=== PATIENT | female | born 1985 | race Caucasian/White ===

== ENCOUNTER 2016-12-15 07:45 | Emergency (ER) | payer OTHER ==
--- NOTE | 2016-12-15 09:06 | ED NURSING NOTES ---
Clinical Report - Nurses [facility] [place] [address] 12/15/2016 7:45 Patient: SARATH MAK TRIAGE Triage time 07:55 Dec 15 2016. Acuity: LEVEL 3. 08:02 12/15/16. --08:02 Brett Bearden R.N. 07:54 12/15/16. BP: 122/66. HR: 117. RR: 20. O2 saturation: 100% on room air. Temp: 97.8 F. Pain level now: 03/22. Additional comments: pain 10 to lle. --08:02 Brett Bearden R.N. Chief Complaint: LEFT LOWER EXTREMITY PAIN, SWELLING and REDNESS. 07:54. --09:44 Brett Bearden R.N. Weight: 95.2 kg stated. Height/Length: 65 inches Per Patient. BMI: 35. --08:05 Brett Bearden R.N. Medications None. --09:43 Brett Bearden R.N. Allergies Sulfa Antibiotics. --08:01 Brett Bearden R.N. History Arrived by private vehicle. Historian: patient. Accompanied by friend. No injury occurred. This occurred yesterday. She has had redness. She has had trouble walking (yesterday). PAST MEDICAL HX: No history of diabetes mellitus or heart disease. Currently . ( Patient reports she is 24 weeks along. 3. Patient reports no flu shot this season.). SURGERY HX: has been performed once. SOCIAL HX: Current every day light tobacco smoker- less than 1/2 a pack per day. No alcohol use or drug use. No infectious disease exposure. FALL RISK ASSESSMENT: Fall risk assessment completed. No fall risk identified. NUTRITIONAL RISK ASSESSMENT: The nutritional risk assessment revealed no deficiencies. LEARNING NEEDS ASSESSMENT: The learning needs assessment revealed no barriers. SKIN INTEGRITY ASSESSMENT: Blister noted on the left calf; present on arrival. Wound and skin consultation obtained. --08:02 Cook, Brett, R.N. Interventions ID band on patient. --08:02 Brett Bearden R.N. PHYSICAL ASSESSMENT 08:04 12/15/16. Ambulatory to room. GENERAL / NEURO / PSYCH: Oriented X 4. Alert. Appears in no acute distress. EXTREMITIES: Purulent drainage on the extremities. Extremity pulses are within normal limits. Extremities exhibit normal ROM. No lower extremity edema. Left leg: tenderness, swelling and erythema of the lower leg. Limited weight bearing secondary to pain (LLE, lateral calf abscess). SKIN: Skin is warm and dry. Skin breakdown noted. --08:04 Brett Bearden R.N. SKIN: ( Edge of erythema outlined with surgical pen.). --08:11 Brett Bearden R.N. NURSING PROGRESS NOTES 08:05 12/15/16. Patient gowned. Reassurance given. Two patient identifiers checked. Call light placed in reach. Side rails up x 2. Bed placed in lowest position. Brakes of bed on. ( RN listened to heart tones at 146 bpm.). --08:05 Brett Bearden R.N. 09:35 12/15/2016 Cleocin (Clindamycin HCl) PO Capsules 150 mg given. Allergies verified and confirmed 5 rights. --09:35 Brett Bearden R.N. 09:37 12/15/16. BP: 121/68. HR: 106. RR: 16. O2 saturation: 98% on room air. Temp: 97.8 F. --09:41 Brett Bearden R.N. Applied clean dressing consisting of telfa pad, following the application of antibiotic ointment. Secured with tape and tube gauze. --09:45 Lorena Weiss R.N. DISPOSITION / DISCHARGE Departure time: 09:42 Dec 15 2016. Condition at departure: improved. The goals identified in the patient's plan of care were met. No learning barriers present. Discharge instructions provided and reviewed with the patient. Reviewed medication(s) course information. Prescription(s) given to the patient. Patient verbalized understanding. Written instructions provided in Sammarinese. The patient was discharged by the physician. She was discharged home. She left the Emergency Department ambulatory and via private vehicle. Patient driving. --09:42 Brett Bearden R.N. 09:37 12/15/16. BP: 121/68. HR: 106. RR: 16. O2 saturation: 98% on room air. Temp: 97.8 F. --09:43 Brett Bearden R.N. Locked/Released at 12/15/2016 9:46 by Lorena Weiss R.N.
--- NOTE | 2016-12-15 09:06 | ED ORDER SUMMARY ---
..... Patient: SARATH MAK OrderSheet [facility] VisitID: [id number] [address] [place] [address] 31y, F Registration Date/Time: 12/15/2016 ORDER SHEET Weight: 95.2 kg (stated) Allergies: Sulfa Antibiotics GENERAL ORDERS: US Venous Right Urgent (08:11 12/15/2016 Telma BONILLA) (8:14 Joyce R.N.) (Cancelled: Other8:15 Telma BONILLA) MEDICATION ORDERS: Cleocin PO 300 mg (NOW) (09:05 12/15/2016 Telma BONILLA) (9:35 Joyce R.N.) IV FLUIDS: ORDER SHEET NOTES: [Electronically signed by Lorena Weiss R.N. (09:46 12/15/2016)] [Electronically signed by Brigid Gloria MD (21:13 12/20/2016)] [Electronically locked/signed by Lorena Weiss R.N. (09:46 12/15/2016)]
--- NOTE | 2016-12-15 09:06 | ED ORDER SUMMARY ---
..... Patient: SARATH MAK OrderSheet [facility] VisitID: [id number] [address] [place] [address] 31y, F Registration Date/Time: 12/15/2016 ORDER SHEET Weight: 95.2 kg (stated) Allergies: Sulfa Antibiotics GENERAL ORDERS: US Venous Right Urgent (08:11 12/15/2016 Telma BONILLA) (8:14 Joyce R.N.) (Cancelled: Other8:15 Telma BONILLA) MEDICATION ORDERS: Cleocin PO 300 mg (NOW) (09:05 12/15/2016 Telma BONILLA) (9:35 Joyce R.N.) IV FLUIDS: ORDER SHEET NOTES: [Electronically signed by Lorena Weiss R.N. (09:46 12/15/2016)] [Electronically signed by Brigdi Gloria MD (21:13 12/20/2016)] [Electronically locked/signed by Lorena Weiss R.N. (09:46 12/15/2016)]
--- NOTE | 2016-12-15 09:06 | ED CLINICAL REPORT ---
Clinical Report - Physicians/Mid Levels [facility] [address] [place] [address] 12/15/2016 7:45 Patient: SARATH MAK Time Seen: 08:10. Arrived- By private vehicle. Historian- patient. HISTORY OF PRESENT ILLNESS Chief Complaint: LOWER EXTREMITY PAIN and SWELLING. Not worsened by anything and relieved by anything. This started about 3 days ago and is still present. Severity is described as being moderate. The quality is noted to be "pain" and similar to prior episodes. The patient has had redness and swelling. No difficulty walking. No bladder dysfunction, bowel dysfunction, sensory loss or motor loss. ( Pt states the area started as what seemed to be a spider bite, but progressed to a larger erythematous area with a blister.). Patient denies an injury. Similar symptoms previously: None. Recent medical care: The patient was seen recently at another facility. ( Pt is receiving care for . She denies any problems with the .). REVIEW OF SYSTEMS No cough, chest pain, difficulty breathing, fever or enlarged lymph nodes. No neck pain, back pain, headache, blurred vision or sore throat. No abdominal pain, vomiting, diarrhea, black stools or difficulty with urination. No bloody stools. The patient has had skin rash. All systems otherwise negative, except as recorded above. PAST HISTORY Problems: Sinusitis. Immunizations. . Ectopic . Dental Pain. LNMP - Last Normal Menstrual Period. Additional Surgeries: . Medications: None. Allergies: Sulfa Antibiotics. SOCIAL HISTORY Smoker- current status unknown. No alcohol use or drug use. ADDITIONAL NOTES The nursing notes have been reviewed. PHYSICAL EXAM Vital Signs: 12/15/2016 07:54 BP: 122/66. HR: 117. RR: 20. O2 saturation: 100%. Temp: 97.8 F. Pain level now: 5/10. Have been reviewed. Appearance: Alert. Oriented X3. No acute distress. Eyes: Pupils equal, round and reactive to light. Eyes normal inspection. ENT: Nose normal. Neck: Normal inspection. CVS: Normal heart rate and rhythm. Heart sounds normal. Respiratory: No respiratory distress. Breath sounds normal. Abdomen: Soft and nontender. Gravid uterus. Back: Normal inspection. Skin: Skin intact. Skin warm and dry. Normal skin color. Normal skin turgor. Extremities: Left leg: moderate erythema and tenderness and mild swelling located in the posterior and lateral aspect of mid leg. Neurovascular intact distally. (Pt has a 2 cm bulla in the center of the erythematous area (5 cm total diameter) with purulent-appearing material within. No deeper induration noted.). No laceration, abrasion, ecchymosis, puncture wound or foreign body. No deformity. No limitation of weight bearing. Extremities otherwise negative. Neuro: Oriented X 3. No motor deficit. No sensory deficit. LABS, X-RAYS, AND EKG Pulse Oximetry: 12/15/2016 07:54 O2 saturation: 100%. (FIO2 - room air). Interpretation: normal. PROGRESS AND PROCEDURES Debridement: Bite wound. Location: left leg. Discussed the procedure's benefits and risks. Prep done with Betadine. Debridement of skin (full thickness) (less than or equal to 20 square centimeters) performed (bulla only). Removed blisters. Sharp dissection performed using scissors. Wound irrigated with normal saline. Antibiotic dressing applied. Tetanus immunization up-to-date. Course of Care: I did debride the skin from the bulla, as above, and pt was started on abx. FHT's were appropriate. I did not find evidence of an abscess. Patient counseled in person regarding the patient's stable condition, diagnosis and need for follow-up. Concerns were addressed. Old medical records reviewed. Disposition: Discharged. Condition: stable and improved. CLINICAL IMPRESSION Cellulitis of the left lower leg. No foreign body present. (Bulla with debridement.). INSTRUCTIONS Apply ice for 20 minutes three times a day as needed and until better. Don't apply ice directly to skin and don't use while asleep. Elevate affected areas above chest level as needed and until better. Warnings: GENERAL WARNINGS: Return or contact your physician immediately if your condition worsens or changes unexpectedly, if not improving as expected, or if other problems arise. Prescription Medications: Clindamycin 300 mg: take 1 capsule orally every 6 hours for 7 days. No refill. Follow-up: Follow up with your doctor in four days if not better. Understanding of the discharge instructions verbalized by patient. (Electronically signed by Brigid Glorai MD 12/20/2016 21:13)
--- NOTE | 2016-12-20 21:13 | ED MAR SUMMARY ---
..... Medication Administration Record [facility] [address] [place] [address] Patient: SARATH MAK Visit ID: [id number] 31y, F Weight: 95.2 kg Height/Length: 65 in BMI: 35 ALLERGIES: Sulfa Antibiotics Given 09:35 12/15/2016 Brett Bearden R.N. Medication Administered: CLEOCIN [PO] (CLINDAMYCIN HCL), Dose: 150 mg Capsules PO. Medication Ordered: Cleocin PO 300 mg (NOW).
--- NOTE | 2016-12-20 21:13 | ED MED RECONCILIATION SUMMARY ---
Patient: SARATH MAK Medication Reconciliation Report [facility] VisitID: [id number] [address] [place] [address] 31y, F Registration Date/Time: 12/15/2016 Weight: 95.2 kg Height/Length: 65 in. BMI: 35.0 ALLERGIES: Sulfa Antibiotics The patient's Home Medications are listed below: NONE. The source(s) of the original Home Medication information: Not obtained. The following Medications were given to the patient in the Emergency Department: Cleocin [PO] PO 150 mg, administered: 12/15/2016 9:35:00 AM The following Medications were prescribed to the patient: Clindamycin 300 mg: take 1 capsule orally every 6 hours for 7 days. No refill. -- Brigid Gloria MD
--- NOTE | 2016-12-20 21:13 | ED MAR SUMMARY ---
..... Medication Administration Record [facility] [address] [place] [address] Patient: SARATH MAK Visit ID: [id number] 31y, F Weight: 95.2 kg Height/Length: 65 in BMI: 35 ALLERGIES: Sulfa Antibiotics Given 09:35 12/15/2016 Brett Bearden R.N. Medication Administered: CLEOCIN [PO] (CLINDAMYCIN HCL), Dose: 150 mg Capsules PO. Medication Ordered: Cleocin PO 300 mg (NOW).
--- NOTE | 2016-12-20 21:13 | ED DISCHARGE INSTRUCTIONS ---
Patient: SARATH MAK General Instructions [facility] VisitID: [id number] [place] [address] 31y, F Registration Date/Time: 12/15/2016 Cellulitis of the left lower leg. No foreign body present. (Bulla with debridement.). INSTRUCTIONS Apply ice for 20 minutes three times a day as needed and until better. Don't apply ice directly to skin and don't use while asleep. Elevate affected areas above chest level as needed and until better. Warnings: GENERAL WARNINGS: Return or contact your physician immediately if your condition worsens or changes unexpectedly, if not improving as expected, or if other problems arise. Prescription Medications: Clindamycin 300 mg: take 1 capsule orally every 6 hours for 7 days. No refill. Follow-up: Follow up with your doctor in four days if not better. Understanding of the discharge instructions verbalized by patient. ADDITIONAL INFORMATION Cellulitis You have an infection of the skin known as cellulitis. This usually starts with a scrape, cut, insect bite, blister or other opening in the skin which becomes infected. This is a serious condition. It must be watched closely to be sure the infection is not spreading. With antibiotic treatment, the size of the red area will gradually shrink in size until the skin returns to normal. This will take 7-10 days. The red area should never increase in size once the antibiotic medicine has been started. Occasionally, an infection will be resistant to one antibiotic and another one will have to be used. Home Care: 1) Limit the use of the affected part, since excess movement can cause the infection to spread. 2) If the infection is on your leg, walk as little as possible during the first few days of the treatment. Keep your leg elevated while sitting. This will reduce swelling. 3) Take all of the antibiotic medicine exactly as directed until it is gone. Be careful not to miss any doses, especially during the first seven days. Follow Up with your doctor or this facility as directed. Check the infected area daily for the warning signs listed below. Get Prompt Medical Attention if any of the following occur: -- Spreading area of redness -- Increasing swelling or pain -- Appearance of pus or drainage -- Fever over 100.4 F (38.0 C) oral, or over 101.4 F (38.6 C) rectal, after two days on antibiotics You have been given the following additional information: Cellulitis (Electronically signed by Brigid Gloria MD 12/20/2016 21:13)
--- NOTE | 2016-12-20 21:13 | ED MED RECONCILIATION SUMMARY ---
Patient: SARATH MAK Medication Reconciliation Report [facility] VisitID: [id number] [address] [place] [address] 31y, F Registration Date/Time: 12/15/2016 Weight: 95.2 kg Height/Length: 65 in. BMI: 35.0 ALLERGIES: Sulfa Antibiotics The patient's Home Medications are listed below: NONE. The source(s) of the original Home Medication information: Not obtained. The following Medications were given to the patient in the Emergency Department: Cleocin [PO] PO 150 mg, administered: 12/15/2016 9:35:00 AM The following Medications were prescribed to the patient: Clindamycin 300 mg: take 1 capsule orally every 6 hours for 7 days. No refill. -- Brigid Gloria MD
[2017-04-07] MEDS ORDERED: ACYCLOVIR400 MG PO (10:54)
[2017-04-07] MEDS ORDERED: PRENATAL1 TAB PO (11:10)
== END 2016-12-15 09:37 | disposition home or self-care (01) ==
LOC: ED SRH 07:45
DX: O26.899 Other specified pregnancy related conditions, unspecified trimester (principal); L03.116 Cellulitis of left lower limb; Z3A.24 24 weeks gestation of pregnancy; Z88.2 Allergy status to sulfonamides

== ENCOUNTER 2017-03-22 08:21 | Outpatient (CLI) | payer OTHER ==
[2017-04-07] MEDS ORDERED: ACYCLOVIR400 MG PO (10:54)
[2017-04-07] MEDS ORDERED: PRENATAL1 TAB PO (11:10)
== END 2017-03-22 23:00 ==
LOC: LAB SRH 08:21
DX: Z34.83 Encounter for supervision of other normal pregnancy, third trimester (principal)
CPT/HCPCS: 90039; 90074

== ENCOUNTER 2017-03-30 12:03 | Outpatient (CLI) | payer OTHER ==
[2017-04-07] MEDS ORDERED: ACYCLOVIR400 MG PO (10:54)
[2017-04-07] MEDS ORDERED: PRENATAL1 TAB PO (11:10)
== END 2017-03-30 12:55 | disposition home or self-care (01) ==
LOC: OBC SRH 12:03 → OB SRH 12:06 → OBC SRH 12:55
DX: O47.1 False labor at or after 37 completed weeks of gestation (principal); Z3A.37 37 weeks gestation of pregnancy

== ENCOUNTER 2017-04-10 08:36 | Outpatient (CLI) | payer OTHER ==
[~2017-04-10 08:36] MED LIST: ACYCLOVIR400 MG PO; PRENATAL1 TAB PO
== END 2017-04-10 23:00 ==
LOC: LAB SRH 08:36
DX: Z34.83 Encounter for supervision of other normal pregnancy, third trimester (principal); Z01.818 Encounter for other preprocedural examination
CPT/HCPCS: 90001; 90004; 90074; 90155; 90469; 91004; 95059

== ENCOUNTER 2017-04-11 06:29 | Inpatient (IN) | payer OTHER ==
--- NOTE | 2017-04-05 13:19 | HISTORY AND PHYSICAL ---
ADMITTED: 04/11/2017 CHIEF COMPLAINT: 1. Term . 2. Previous section for macrosomia for repeat section and scar revision. HISTORY OF PRESENT ILLNESS: The patient is a 31-year-old 3, para 2, with a previous section, history of macrosomia. 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 She has a history of herpes and is now taking Acyclovir 400 mg t.i.d. starting at 36 weeks. She is anemic with hematocrit of 33 several weeks ago. She also has a history of late care with us starting at 32 weeks from [place] [facility]. Her DTaP has been given and MRSA is negative and previous section was for a 9 pound 7 ounce baby. MEDICAL/SURGICAL HISTORY: Menstrual history: Noncontributory, age 13 menarche. Contraception/ history: Noncontributory. Obstetric history: Continued is 2008, 7 pound 9 ounce baby by and second child in 2014 term 9 pounds 7 ounces by . The patient has been offered to have a tubal ligation on multiple visits and has been declined. Surgical history: section x2. Medical history: Herpes simplex. MEDICATIONS: 1. Acyclovir 400 mg t.i.d. for prophylactic herpes therapy. ALLERGIES: SULFA. SOCIAL HISTORY: Yes for tobacco. No for alcohol and drugs. We requested information again today. FAMILY HISTORY: Noncontributory. Mother, father, siblings. REVIEW OF SYSTEMS: Alert and oriented x3, obese patient. Genitourinary: Purpose for surgery. Cardiovascular: No shortness of breath or chest pain. Gastrointestinal: Normal daily bowel movements. PHYSICAL EXAMINATION: VITAL SIGNS: She is 66 inches, blood pressure 120/66, pulse and temperature normal. HEENT: Grossly intact. SKIN/HAIR/INTEGUMENT: Normal. BREASTS: Exam not done. LUNGS: Clear. HEART: Regular rate and rhythm. ABDOMEN: Obese, fundal height 40 to 41 cm. EXTREMITIES: No clubbing, cyanosis, erythema or edema. PELVIC: Exam not done. RECTAL: Exam not done. LAB/IMAGING: Laboratories pending. IMPRESSION: 1. A 39+ week gestation, third delivery with third section. Tubal declined. PLAN: Repeat section and scar revision. Informed consent given. Risks, benefits, complications, alternatives, possibility of blood loss, need for transfusion, infection, damage to pelvic and nonpelvic organs informed especially due to previous section, with possible adhesions. The patient understands and accepts. All risks and benefits described up to and including , ICU stay, intubation.
[~2017-04-11] VITALS: Ht 166.4 cm; Wt 103.0 kg
[2017-04-11] VITALS (10 sets, daily range): BP systolic 105–121; BP diastolic 53–87
--- NOTE | 2017-04-11 11:39 | OPERATIVE REPORT ---
DATE OF SURGERY: 04/11/2017 SURGEON: Bill Robert MD AIRCRAFT MAINTENANCE MANAGER: Bill Flores MD PREOPERATIVE DIAGNOSIS: 1. Term , previous section POSTOPERATIVE DIAGNOSES: 1. Term , previous section 2. Delivered PROCEDURE PERFORMED: 1. Repeat low segment transverse uterine section after scar revision. FINDINGS: Normal active with good Apgars. Light to moderate meconium. ANESTHESIA: Spinal. Anesthesiologist: Diana CHINO. COMPLICATIONS: None, adhesions as expected from previous sections. CONDITION: Normal/good. ESTIMATED BLOOD LOSS: Less than 500 mL, less than normal. FLUIDS: See anesthesia. DRAINS: See anesthesia. No blood. IMPLANTS/GRAFTS: None. PATHOLOGY SPECIMEN: Scar revision and placenta, discarded. SURGICAL TECHNIQUE: The patient was prepped and draped in the usual fashion. Antibiotics had been given, notified of the time-out. The procedure was done in the usual fashion. The scalpel was used to make an incision 1-2 cm below the previous scar site. The scar was removed. The fascia was dissected laterally and superiorly. The midline was thin. Careful dissection revealed the parietal peritoneum. A finger was introduced and stretching mechanism was used to separate the rectus. The Neil was placed for internal retraction, Bovie was used to establish the bladder flap, moderate meconium was noted, light to moderate meconium, peds in attendance. A hemostat was used to dissect along the incision site for 2 cm. A finger was inserted and the bandage scissors were used to carry the incision laterally and superiorly. was then found to be in the LOT position and delivered with minimal amount of pressure and minimal delivery strength was used to deliver, the was quite active. The head was suctioned on delivery for meconium, both nares and the side of the mouth. was quite active, double clamped the cord. Pitocin was given. Infant was handed to the OB nurse and RT. Pitocin had been given. The uterus was massaged, left in its normal anatomic position. The placenta was removed and membranes were wiped out, the borders were identified with the rings. A suture of 0 was used to close backwards and forwards and close the lower uterine segment. Good hemostasis, the double loop of suture was used to reapproximate the rectus to prevent diastasis recti future case. The fascia was then reapproximated with a second suture and the third was used to finalize the closure, A 2-0 was then used to reapproximate the 2-3 cm of subcutaneous tissues. [place] were used to reapproximate the skin. Sponge, needle, tape and instrument count was correct x2. The patient tolerated the procedure well and went to the recovery room in good condition.
[2017-04-12] VITALS: BP 109/50
[2017-04-12 05:30] VITALS: BP 100/52
[2017-04-12 07:55] VITALS: BP 118/58
[2017-04-12 16:45] VITALS: BP 115/56
[2017-04-13 00:40] VITALS: BP 129/68
[2017-04-13 05:20] VITALS: BP 112/64
[2017-04-13 07:39] VITALS: BP 123/74
[2017-04-13] MEDS ORDERED: PERCOCET1 TA1 PO (08:43)
--- NOTE | 2017-04-13 08:45 | Provider's Discharge Care Plan ---
Problem, Goal, Plan Problem List 1. Post-op pain Goals: Improve disease control Instructions: Follow up as needed
--- NOTE | 2017-04-13 08:45 | Provider's Discharge Care Plan ---
Problem, Goal, Plan Problem List 1. Post-op pain Goals: Improve disease control Instructions: Follow up as needed
== END 2017-04-13 10:45 | disposition home or self-care (01) | DRG 540 ==
LOC: OB SRH 06:29 → U SRH 07:30 → OB SRH 04-13 10:45
PROVIDERS: ADMIT Obstetrics & Gynecology
PROC: 10D00Z1 Extraction of Products of Conception, Low, Open Approach (ICD-10-PCS; principal; 2017-04-11 09:00)
DX: O34.211 Maternal care for low transverse scar from previous cesarean delivery (principal); Z37.0 Single live birth; Z3A.39 39 weeks gestation of pregnancy; O77.0 Labor and delivery complicated by meconium in amniotic fluid; O98.32 Other infections with a predominantly sexual mode of transmission complicating childbirth; A60.04 Herpesviral vulvovaginitis; Z79.899 Other long term (current) drug therapy
CPT/HCPCS: 40010; 50002; 60001; 83307; 83411; 83426; 83475; 83526; 84038; 90074; 91162; 91163; 92760; 92761; 92762; 92763; 92764; 92765; 92766; 92767